=== PATIENT | female | born 1995 | race Caucasian/White ===

== ENCOUNTER 2016-12-04 07:04 | Observation (INO) ==
[2016-12-04 08:27] LABS: URINE SOURCE VOIDED
[2016-12-04 08:42] LABS: BILIRUBIN URINE NEGATIVE (NEGATIVE); BLOOD URINE NEGATIVE (NEGATIVE); CLARITY SL. CLOUDY (CLEAR); COLOR YELLOW; GLUCOSE URINE NEGATIVE (NEGATIVE); LEUKOCYTES URINE 2+ (NEGATIVE); NITRITE URINE NEGATIVE (NEGATIVE); PROTEIN URINE NEGATIVE (NEGATIVE); UROBILINOGEN URINE NORMAL
[2016-12-04] MEDS ORDERED: MAGNESIUM SULFATE 4 GM/S.W.I. 4 GM/100 ML IVPB IV ONE (08:48)
[2016-12-04] MEDS ORDERED: CELESTONE SOLUSPAN IM ONE (08:48)
[2016-12-04] MEDS ORDERED: MAGNESIUM SULFATE 40 GM/S.W.I. 40 GM/1,000 ML IV.SOLN IV SCH (09:00)
[2016-12-04] MEDS ORDERED: AMPICILLIN 2 GM/NS 2 GM/100 ML IVPB IV ONE (09:00)
[2016-12-04] MEDS: LR 1,000 ML IV SCH ×2 (09:40→21:52)
[2016-12-04] MEDS ORDERED: STADOL IV ONE (11:17)
[2016-12-04] MEDS ORDERED: ZOFRAN IV ONE (11:17)
[2016-12-04] MEDS: MAGNESIUM SULFATE 40 GM/S.W.I. 40 GM/1,000 ML IV.SOLN IV SCH (11:41)
--- NOTE | 2016-12-04 13:48 | Diag Imaging Result Doc PS360 ---
EXAM: US OBS COMPLETE > 14 WKS HISTORY: weight and presentation TECHNIQUE: OB ultrasound COMMENT: There is a viable intrauterine gestation in cephalic presentation with a heart rate of 116 bpm period placenta is posterior and there is no evidence of placenta previa. There is no evidence of cervical effacement and os is closed. There is a 1.4 cm venous trejo in the placenta. Based on multiple parameters estimated gestational age by ultrasound is 32 weeks one day +/- 17 days for an QIANA of 01/28/2017. There are no previous studies for this . The estimated weight is 1934 g +/- 337 g. There are no apparent anatomic abnormalities. The amniotic fluid volume is qualitatively normal. IMPRESSION: Normal viable intrauterine gestation at 32 weeks one day by ultrasound. Electronically signed by Peewee Estevez 12/04/2016 1:46 PM
[2016-12-04] MEDS: AMPICILLIN 1 GM/NS 1 GM/50 ML IVPB IV SCH ×3 (13:53→21:52)
--- NOTE | 2016-12-04 18:10 | HISTORY AND PHYSICAL ---
CHIEF COMPLAINT: Vaginal spotting. HISTORY OF PRESENT ILLNESS: The patient is a 21-year-old, 2, para 0-1-0 -1, at 32 weeks 5 days by last menstrual period of 04/19/2016, with a due date of 01/24/2017, consistent with a 17- week ultrasound, who presented this morning to labor and delivery with complaints of vaginal spotting since this morning. The patient does have a history that is significant for delivery at 36 weeks 6 days, but that prior was complicated by threatened labor at 27 weeks requiring magnesium sulfate and steroids. The patient has been on weekly [place], and she is complaining of contractions that are irregular. She has good movement. No rupture of membranes. She denies any other problems at this time. PAST MEDICAL HISTORY: 1. She reports hypothyroidism that self-resolved. 2. Childhood asthma. 3. Migraines without aura. 4. History of diet-controlled gestational diabetes. PAST SURGICAL HISTORY: No surgeries. OBSTETRICAL HISTORY: 2, para 0-1-0-1, with 07/17/2014 at 36 weeks 6 day labor with vaginal delivery in [place], [place], of a 5 pound 3 ounce male. complicated by diet- controlled gestational diabetes and threatened labor requiring magnesium and steroids. ALLERGIES: Reglan leads to hives and nausea and vomiting. CURRENT MEDICATIONS: 1. Fusion Plus [address] [place] weekly. 3. [id number]-[id number] Gummy vitamins. SOCIAL HISTORY: She is . She lives with her and her son, as well as her sister and her niece, who recently moved in. She denies any tobacco, alcohol, or drug use. She is a [id number] mother. FAMILY HISTORY: Significant for ovarian cancer in paternal grandmother at age 68. Diabetes in mother, father, paternal grandmother, paternal grandfather, maternal grandmother , and maternal grandfather. Hypertension in her father. PERTINENT LABORATORIES: Glucola was 132 on November 04. RPR is nonreactive. Quad screen was never collected, but it was ordered on August 20. HIV is nonreactive. Blood type B positive. Antibody negative. Hepatitis B negative. Rubella immune. Platelets 282,000, hemoglobin and hematocrit are 12.7 and 36.8. Gonorrhea and chlamydia were negative. Urine culture was no growth. TSH 1.04, within normal range in July, and free T4 was 1.2 PHYSICAL EXAMINATION: CURRENT VITAL SIGNS: She is afebrile with stable vital signs, with current blood pressure 107/60, heart rate 98. GENERAL: The patient awake, alert, oriented, no acute distress. A thin white female. CHEST: Clear to auscultation bilaterally. CARDIOVASCULAR: Regular rate and rhythm. ABDOMEN: Soft, gravid, and nontender. CERVIX: Cervical exam showed mild cervical change from 1 cm to 2 cm and has softened consistency, but has remained around 60%. Baby is -3. Small amount of bloody show noted on glove. EXTREMITIES: No clubbing, cyanosis, or edema. DIAGNOSTIC DATA: NST: 110s, moderate variability and reactive, reassuring. The patient is having contractions that were initially 2 to 3 minutes apart, but are now more irregular, up to 8 minutes apart. Laboratories: Group B strep is pending. Urine shows 2+ white blood cells, but otherwise negative. Ultrasound today, intrauterine in vertex presentation with heart rate of 116. Placenta is posterior, no previa. Gestational age average 32 + 1. Estimated weight 1934 grams, which is 4 pounds 4 ounces. Amniotic fluid index is qualitatively normal. ASSESSMENT AND PLAN: A 21-year-old, 2, para 0-1-0-1, at 32 weeks 5 days with threatened labor. The patient was started on ampicillin for group B Streptococcus prophylaxis while her group B Streptococcus culture is pending. The patient was intravenously hydrated, as well as started on magnesium sulfate for tocolysis. She was given betamethasone x1 with plans to repeat that in 24 hours. We did discuss the possibility of a transfer if we are unable to stop her contractions or to stop her labor progress, and she stated understanding. cc: MD KANDY Lennon
[2016-12-05] MEDS: MAGNESIUM SULFATE 40 GM/S.W.I. 40 GM/1,000 ML IV.SOLN IV SCH (03:00)
[2016-12-05] MEDS: AMPICILLIN 1 GM/NS 1 GM/50 ML IVPB IV SCH ×3 (03:00→10:39)
[2016-12-05] MEDS ORDERED: MAGNESIUM SULFATE 40 GM/S.W.I. 40 GM/1,000 ML IV.SOLN IV SCH (08:00)
[2016-12-05] MEDS ORDERED: ADALAT CC PO ONE (10:22)
[2016-12-05] MEDS ORDERED: CELESTONE SOLUSPAN IM ONE (11:03)
[2016-12-05 12:06] VITALS: BP 107/59
[2016-12-05] MEDS: LR 1,000 ML IV SCH (13:43)
--- NOTE | 2016-12-06 17:02 | DISCHARGE SUMMARY ---
ADMISSION DATE: 12/04/2016 DISCHARGE DATE: 12/05/2016 ADMITTING DIAGNOSIS: labor. PRINCIPAL DIAGNOSIS: labor. PRINCIPAL PROCEDURES: 1. Tocolysis. 2. Betamethasone. SUMMARY: Dali is a 21-year-old, 2, para 0-1-0-1, at 32 and 5 weeks gestation. She was admitted with vaginal bleeding. She has been on [place] due to a history of labor with her first . Upon admission she was noted to be having some contractions. She was dilated 1-2 cm. She was started on magnesium and given betamethasone. She has now received 2 doses of betamethasone. We have weaned her off magnesium and she is having rare contractions. Our plan is to send her home on pelvic and bed rest. We will start her on Procardia 60 mg XL twice a day. She will call if there are any more contractions. Otherwise we will see her in the office next week. cc: MD Ninfa Childress MD
== END 2016-12-05 15:35 | disposition home or self-care (01) ==
LOC: P.OPLD 07:04 → P.LD 07:12 → INTOOBSV 08:46
PROVIDERS: ADMIT Obstetrics & Gynecology; ATTEND Obstetrics & Gynecology